=== PATIENT | female | born 1985 | race Caucasian/White ===

== ENCOUNTER 2016-10-30 22:20 | Emergency (ER) | payer OTHER ==
[2016-10-30 22:42] VITALS: TEMP 99.1
--- NOTE | 2016-10-30 22:53 | EDPHY ---
H & P Stated Complaint: abd pain HPI/ROS: HPI CHIEF COMPLAINT: Abdominal pain x1 month HISTORY OF PRESENT ILLNESS: This patient very pleasant 30-year-old female significant past medical history for adrenal hyperplasia, gastric bypass Sharla-en -Y also has had a history of perforation with ulcer, and revision of the gastric Sharla-en-Y, presents to the emergency room with 1 month of persistent abdominal pain. Patient tells me it is sharp stabbing pain located in right upper quadrant as well as pain in the left lower quadrant. She denies nausea vomiting or diarrhea she denies black tarry stools denies blood in her stool, denies fever, denies urinary symptoms. Denies back pain. She tells me this is not associated with eating. She tells me it happens randomly she does notice it greatly when she is at work. Past Medical History: adrenal hyperplasia, obesity Past Surgical History: gastric bypass surgery Sharla-en-Y, complicated by gastric perforation and ulcer. Social History: lives in [place], works here at [employer] as an [employer] Family History: Noncontributory ROS REVIEW OF SYSTEMS: A comprehensive 10 point review of systems is otherwise negative aside from elements mentioned in the history of present illness. Exam Constitutional triage nursing summary reviewed, vital signs reviewed, awake/ alert. Eyes normal conjunctivae and sclera, EOMI, PERRLA. HENT normal inspection, atraumatic, moist mucus membranes, no epistaxis, neck supple/ no meningismus, no raccoon eyes. Respiratory clear to auscultation bilaterally, normal breath sounds, no respiratory distress, no wheezing. Cardiovascular rate normal, regular rhythm, no murmur, no edema, distal pulses normal. Gastrointestinal soft, mild tenderness palpation right upper quadrant , no rebound, no guarding, normal bowel sounds, no distension, no pulsatile mass. Genitourinary no CVA tenderness. Musculoskeletal no midline vertebral tenderness, full range of motion, no calf swelling, no tenderness of extremities, no meningismus, good pulses, neurovascularly intact. Skin pink, warm, & dry, no rash, skin atraumatic. Neurologic awake, alert and oriented x 3, AAOx3, moves all 4 extremities equally, motor intact, sensory intact, CN II-XII intact, normal cerebellar, normal vision, normal speech. Psychiatric normal mood/affect. Heme/Lymph/Immune no lymphadenopathy. Differential diagnosis includes but is not limited to and in no particular order : gastric perforation, ulcer, Bowel obstruction, appendicitis, gallbladder disease, diverticulitis, colitis, enteritis, perforated viscus, gastritis, GERD , esophagitis, urinary tract infection, pyelonephritis, kidney stones Medical Decision Making: This patient had an IV established, we will obtain blood work including abdominal labs, lactic acid, urinalysis she will need a CT scan of her abdomen pelvis with IV contrast to rule out perforation or significant intra-abdominal inflammation she will also have an ultrasound of her right upper quadrant. I will touch base also with Dr. Trevino. Re-evaluation: CT scan of the abdomen pelvis with IV contrast. The results of the study are negative for acute inflammatory process CT is unchanged from previous CT dated in July The study was read by Dr. Shine I viewed the images myself on the PACS system. Ultrasound of the abdomen limited right upper quadrant The results of the study are negative for anything acute I discussed the results of this study with the radiologist Dr. Shine 0307: re-evaluation at this time abdomen is soft nontender no guarding or peritoneal signs she has not had any vomiting I reviewed her CT scan ultrasound blood work blood work is reassuring she has a negative ultrasound for anything acute for gallbladder CT scan does not show acute inflammatory process. I will touch base with Dr. Trevino about her testing results most likely plan is to send her home with some pain medicine and an acid medication if she develops worsening pain vomiting or blood in her stool she needs return immediately to the emergency room she understands this. 0413: Re-examination abdomen remained soft she is comfortable plan for discharge. Prescription for Tatitlek and Protonix. She understands return if she develops worsening symptoms questions or concerns. Source: Patient - Personal History LMP (Females 10-55): Unknown Tetanus Vaccine Date: 2008 - Medical/Surgical History Hx Asthma: No Hx Chronic Respiratory Disease: No Hx Diabetes: No Hx Cardiac Disease: No Hx Renal Disease: No Hx Cirrhosis: No Hx Alcoholism: No Hx HIV/AIDS: No Hx Splenectomy or Spleen Trauma: No Other PMH: congenital adrenal hyperplasia, marginal ulcers, gastric bypass,. uti's, thyroid nodules. jul 2016 perforated ulcer. - Social History Smoking Status: Never smoked Constitutional: Initial Vital Signs Temperature (C) 37.3 C 10/30/16 22:38 Heart Rate 90 10/30/16 22:38 Respiratory Rate 20 10/30/16 22:38 Blood Pressure 137/77 H 10/30/16 22:38 O2 Sat (%) 98 10/30/16 22:38 O2 Delivery Mode Room Air Allergies/Adverse Reactions: morphine Allergy (Intermediate, Verified 10/30/16 22:35) Itching hydromorphone HCl [From Dilaudid] Allergy (Mild, Verified 10/30/16 22:35) Itching Home Medications: Medication Instructions Recorded Dexamethasone [Decadron 1.5 mg (*)] 0.75 mg PO DAILY 05/01/16 Fludrocortisone Acetate [Florinef] 0.1 mg PO DAILY #0 tab 08/23/16 Hydrocodone/APAP 5/325 [[place] 1 - 2 tab PO Q4H PRN #10 tab 10/31/16 5/325] Pantoprazole Sodium [Protonix 40mg 40 mg PO DAILY #30 tab 10/31/16 (*)] Medical Decision Making - Data Points Laboratory Results: Laboratory Results 10/30/16 23:10 10/30/16 23:10 10/31/16 10/30/16 04:07 23:10 WBC 12.51 H 10^3/uL (3.80-9.50) RBC 5.47 H 10^6/uL (4.18-5.33) Hgb 12.7 g/dL (12.6-16.3) Hct 40.6 % (38.0-47.0) MCV 74.2 L fL (81.5-99.8) MCH 23.2 L pg (27.9-34.1) MCHC 31.3 L g/dL (32.4-36.7) RDW 16.1 H % (11.5-15.2) Plt Count 352 10^3/uL (150-400) MPV 8.6 L fL (8.7-11.7) Neut % (Auto) 62.7 % (39.3-74.2) Lymph % (Auto) 30.1 % (15.0-45.0) [place] % (Auto) 5.9 % (4.5-13.0) Eos % (Auto) 0.7 % (0.6-7.6) Baso % (Auto) 0.2 L % (0.3-1.7) Nucleat RBC Rel Count 0.0 % (0.0-0.2) Absolute Neuts (auto) 7.83 H 10^3/uL (1.70-6.50) Absolute Lymphs (auto) 3.77 H 10^3/uL (1.00-3.00) Absolute Monos (auto) 0.74 10^3/uL (0.30-0.80) Absolute Eos (auto) 0.09 10^3/uL (0.03-0.40) Absolute Basos (auto) 0.03 10^3/uL (0.02-0.10) Absolute Nucleated RBC 0.00 10^3/uL (0-0.01) Immature Gran % 0.4 % (0.0-1.1) Immature Gran # 0.05 10^3/uL (0.00-0.10) PT 12.5 SEC (12.0-15.0) INR 0.94 (0.83-1.16) APTT 29.0 SEC (23.0-38.0) VBG Lactic Acid 1.1 mmol/L (0.7-2.1) Sodium 139 mEq/L (134-144) Potassium 4.3 mEq/L (3.5-5.2) Chloride 104 mEq/L (97-110) Carbon Dioxide 23 mEq/l (22-31) Anion Gap 12 mEq/L (8-16) BUN 17 mg/dL (7-23) Creatinine 0.7 mg/dL (0.6-1.0) Estimated GFR > 60 Glucose 103 H mg/dL (70-100) Calcium 9.0 mg/dL (8.5-10.4) Total Bilirubin 0.4 mg/dL (0.1-1.4) Conjugated Bilirubin 0.2 mg/dL (0.0-0.5) Unconjugated Bilirubin 0.2 mg/dL (0.0-1.1) AST 20 IU/L (14-46) ALT 36 IU/L (9-52) Alkaline Phosphatase 95 IU/L (38-126) Total Protein 7.5 g/dL (6.3-8.2) Albumin 4.0 g/dL (3.5-5.0) Lipase 125.0 IU/L (23-300) Beta HCG, Qual NEGATIVE Urine Color Pending Urine Appearance Pending Urine pH Pending Ur Specific [place] Pending Urine Protein Pending Urine Ketones Pending Urine Blood Pending Urine Nitrate Pending Urine Bilirubin Pending Urine Urobilinogen Pending Ur Leukocyte Esterase Pending Ur Culture Indicated? Pending Urine Glucose Pending Medications Given: Discontinued Medications Diphenhydramine HCl (Benadryl Injection) 25 mg IVP EDNOW ONE Stop: 10/31/16 00:02 Last Admin: 10/31/16 00:01 Dose: 25 mg Diphenhydramine HCl (Benadryl Injection) 25 mg IVP EDNOW ONE Stop: 10/31/16 02:45 Last Admin: 10/31/16 02:45 Dose: 25 mg Hydromorphone HCl (Dilaudid) 1 mg IVP EDNOW ONE Stop: 10/30/16 23:03 Last Admin: 10/30/16 23:29 Dose: 1 mg Hydromorphone HCl (Dilaudid) 1 mg IVP EDNOW ONE Stop: 10/31/16 01:05 Last Admin: 10/31/16 01:09 Dose: 1 mg Sodium Chloride (Ns) 1,000 mls @ 0 mls/hr IV ONCE ONE PRN Reason: Wide Open Stop: 10/30/16 23:03 Last Admin: 10/30/16 23:28 Dose: 1,000 mls Ondansetron HCl (Zofran) 4 mg IVP EDNOW ONE Stop: 10/30/16 23:03 Last Admin: 10/30/16 23:28 Dose: 4 mg Departure - Departure Disposition: Home, Routine, Self-Care Clinical Impression: Abdominal pain Qualifiers: Abdominal location: generalized Qualifier Code: (R10.84) Generalized abdominal pain Condition: Good Instructions: Abdominal Pain (ED), Acute Abdominal Pain (ED) Additional Instructions: 1. Return emergency room if he develops any worsening symptoms includes worsening abdominal pain, vomiting or fever. 2. Please take Protonix as prescribed. 3. I have given you a limited supply of [place]k for pain control have reviewed develops severe pain return to the ER. 4.Your CT scan, blood work, ultrasound reassuring today. It is possibly have an ulcer causing her pain. Please monitor stool for blood. Referrals: Uzma Dooley MD [Primary Care Provider] - As per Instructions Prescriptions: Hydrocodone/APAP 5/325 [T[place]k 5/325] 1 - 2 tab PO Q4H PRN #10 tab PRN Reason: Pain, Moderate Pantoprazole Sodium [Protonix 40mg (*)] 40 mg PO DAILY #30 tab
[2016-10-30] MEDS ORDERED: ONDANSETRON 4 MG/2 ML VIAL IVP ONE (23:02)
[2016-10-30] MEDS ORDERED: HYDROmorphONE/DILAUDID 1 MG/ML SYR IVP ONE (23:02)
[2016-10-30] MEDS ORDERED: NS 1,000 ML IV ONE (23:02)
[2016-10-30 23:18] LABS: % IMMATURE GRANULYOCYTES 0.4 % (0.0-1.1); ABSOLUTE IMMATURE GRANULOCYTES 0.05 10^3/uL (0.00-0.10); ADD DIFF? NO; ADD MORPH? NO; ADD SCAN? NO; ATYPICAL LYMPHOCYTE FLAG 10 (0-99); FRAGMENT RBC FLAG 0 (0-99); HEMATOCRIT 40.6 % (38.0-47.0); HEMOGLOBIN 12.7 g/dL (12.6-16.3); LEFT SHIFT FLG 0 (0-99); LIPEMIA HEMOLYSIS FLAG 80 (0-99); MEAN CELL HEMOGLOBIN 23.2 pg (27.9-34.1); MEAN CELL HEMOGLOBIN CONCENTR. 31.3 g/dL (32.4-36.7); MEAN CELL VOLUME 74.2 fL (81.5-99.8); MEAN PLATELET VOLUME 8.6 fL (8.7-11.7); PLATELET CLUMPS FLAG 20 (0-99); PLATELET COUNT 352 10^3/uL (150-400); RED BLOOD CELL COUNT 5.47 10^6/uL (4.18-5.33); RED CELL DISTRIBUTION WIDTH 16.1 % (11.5-15.2)
[2016-10-30 23:28] LABS: ALANINE AMINOTRANSFERASE 36 IU/L (9-52); ALKALINE PHOSPHATASE 95 IU/L (38-126); ANION GAP 12 mEq/L (8-16); ASPARTATE AMINOTRANSFERASE 20 IU/L (14-46); BILIRUBIN,TOTAL 0.4 mg/dL (0.1-1.4); BILIRUBIN-CONJUGATED 0.2 mg/dL (0.0-0.5); BILIRUBIN-UNCONJUGATED 0.2 mg/dL (0.0-1.1); CARBON DIOXIDE 23 mEq/l (22-31); CHLORIDE 104 mEq/L (97-110); CREATININE 0.7 mg/dL (0.6-1.0); GLOMERULAR FILTRATION RATE > 60; GLUCOSE 103 mg/dL (70-100); POTASSIUM 4.3 mEq/L (3.5-5.2); SODIUM 139 mEq/L (134-144); TOTAL PROTEIN 7.5 g/dL (6.3-8.2)
[2016-10-30 23:29] LABS: INR 0.94 (0.83-1.16); PROTIME(PATIENT) 12.5 SEC (12.0-15.0)
[2016-10-30] MEDS ORDERED: IOPAMIDOL (ISOVUE-300) 50 ML VIAL IV ONE (23:41)
--- NOTE | 2016-10-31 00:56 | GHP ---
[f rep st] PREOP HISTORY AND PHYSICAL DATE OF ADMISSION: 10/30/2016 TIME OF EXAMINATION: [address] abdomen and pelvis with intravenous contrast. HISTORY: Right upper quadrant pain. TECHNIQUE: The patient received 98 mL of Isovue 300, intravenously. Contrast was given by automated power machine injector. Multidetector helical CT was performed through the abdomen and pelvis using dose reduction technology. FINDINGS: Compared to August 06, 2016. Both adrenal glands were severely enlarged, as before. A 4 mm stone in the lower pole of the left kidney is unchanged. No hydronephrosis. The gallbladder is partially contracted, with no calcified stones and no thickening of the wall. No fluid around the ga llbladder. The liver is normal. The pancreas and spleen are normal. The patient has had surgical e xclusion of the fundus of the stomach, unchanged. No masses and no fluid collections. No aneurysm o f the abdominal aorta. In the pelvis, the uterus and adnexa are small. The patient is morbidly obese. The lung bases are c lear. No pleural effusion. IMPRESSIONS: 1. Bilateral adrenal hypertrophy. 2. Small stone of lower pole of left kidney. 3. Morbid obesity. 4. No change from August 06, 2016. I telephoned the results to Dr. Hurd at 0029 hours. /[id number]/MODL
[2016-10-31] MEDS ORDERED: HYDROmorphONE/DILAUDID 1 MG/ML SYR IVP ONE (01:04)
[2016-10-31 01:46] VITALS: RESP 14
[2016-10-31] MEDS ORDERED: IBUPROFEN 600 MG TAB PO ONE (02:58)
[2016-10-31] MEDS ORDERED: IBUPROFEN 200 MG TAB PO ONE (02:58)
[2016-10-31 04:19] LABS: COLOR YELLOW; LEUKOCYTE ESTERASE,URINE TRACE (NEGATIVE); NITRITE,URINE NEGATIVE (NEGATIVE)
[2016-10-31 04:27] LABS: BACTERIA TRACE /hpf (NONE SEEN); MUCUS TRACE /lpf (NONE-1+)
[2016-10-31] MEDS ORDERED: HYDROCOD/APAP 5/325 PREPACK#6 BTL TAKEHOME ONE (04:30)
[2016-10-31 04:42] VITALS: BP 120/76; PULSE 84; O2SAT 96
--- NOTE | 2016-10-31 07:06 | US ---
Sonogram Right Upper Quadrant of the Abdomen 2330 hours History: Pain. Findings: Gallbladder is partially contracted. No stones are found. Biliary ducts are not dilated. No hepatic masses are found. Right kidney is normal. Limited visualization of abdominal aorta and inferior vena cava. Pancreas is obscured by morbid obesity. Impression: Negative for gallstones. MTDD
--- NOTE | 2016-11-01 06:47 | CT ---
CT Abdomen and Pelvis With Intravenous Contrast 2355 hours History: Right upper quadrant pain. Technique: The patient received 98 mL of Isovue-300, intravenously. Contrast was given by automated power machine injector. Multidetector helical CT was performed through the abdomen and pelvis using dose reduction technology. Comparison: August 06, 2016. Findings: Both adrenal glands are severely enlarged, as before. A 4 mm stone in the lower pole of the left kidney is unchanged. No hydronephrosis. The gallbladder is partially contracted, with no calcified stones and no thickening of the wall. No fluid around the gallbladder. The liver is normal. The pancreas and spleen are normal. The patient has had surgical exclusion of the fundus of the stomach, unchanged. No masses and no fluid collections. No aneurysm of the abdominal aorta. In the pelvis, the uterus and adnexae are small. The patient is morbidly obese. The lung bases are clear. No pleural effusion. Impressions: 1. Bilateral adrenal hypertrophy. 2. Small stone of lower pole of left kidney. 3. Morbid obesity. 4. No change from August 06, 2016. I telephoned the results to Dr. Hurd at 0029 hours. [id number] MTDD
== END 2016-10-31 04:41 | disposition home or self-care (01) ==
DX: R10.84 Generalized abdominal pain (principal)
CPT/HCPCS: 96374; J1170; J2405; Q9967